=== PATIENT | male | born 2005 | race African-American/Black ===

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

== ENCOUNTER 2025-02-15 23:43 | Emergency (ER) | payer MEDICAID ==
[~2025-02-15] VITALS: Ht 172.7 cm; Wt 60.0 kg
--- NOTE | 2025-02-16 00:02 | ED.PDOC ---
GI ASSESSMENT HPI Comments 19-year-old male who came to ER for abdominal pain. Patient states for the past week, he has been experiencing intermittent episodes of diffuse, cramping, abdominal pain and lower back pains. For the past day, patient's abdominal pain and lower back pains persisted, now associated with episodes of nausea and vomiting. Patient denies any abdominal surgeries Chief Complaint: Abdominal pain Time Seen by MD: 00:01 Primary Care Provider: YOSEF Reviewed Notes: Nurses Notes Allergies: Coded Allergies: NO KNOWN ALLERGIES (Unverified , 06/21/15) Home Meds Active Scripts Tamsulosin Hcl (Flomax) 0.4 Mg Cap, 1 CAP PO DAILY for 30 Days, #30 CAP 11 Refills Prov:NURA CARDENAS MD 02/16/25 Cefdinir (Cefdinir) 300 Mg Cap, 1 CAP PO BID for 7 Days, #14 CAP Prov:NURA CARDENAS MD 02/16/25 Information Source: Patient Mode of Arrival: Ambulatory Timing: Days Duration: Intermittent Quality: Aching, Cramping Vomitus: Watery Stool: Normal Severity: Moderate Recent: None Recent Hx of: None Pain Location: Diffuse Associated sign and symptoms: Nausea, Vomiting, Abdominal Pain, Other (Back pain) Past Medical History PAST MEDICAL HISTORY: Denies Surgical History: Denies all surgeries Family History Family History: Reviewed,noncontributory to illness Social History Smoker: Non-Smoker Alcohol: Denies ETOH Use Drugs: Denies Drug Use Lives In: Home Constitutional: denies: chills, diaphoresis, fatigue, fever, malaise, sweats, weakness, others EENTM: denies: blurred vision, double vision, ear bleeding, ear discharge, ear drainage, ear pain, ear ringing, eye pain, eye redness, hearing loss, mouth pain, mouth swelling, nasal discharge, nose bleeding, nose congestion, nose pain, photophobia, tearing, throat pain, throat swelling, voice changes, others Respiratory: denies: cough, hemoptysis, orthopnea, SOB at rest, shortness of breath, SOB with excertion, stridor, wheezing, others Cardiovascular: denies: chest pain, dizzy spells, diaphoresis, Dyspnea on exertion, edema, irregular heart beat, left arm pain, lightheadedness, palpitations, PND, syncope, others Gastrointestinal: reports: abdominal pain, nausea, vomiting; denies: abdomen distended, blood streaked bowels, constipated, diarrhea, dysphagia, difficulty swallowing, hematemesis, melena, poor appetite, poor fluid intake, rectal bleeding, rectal pain, others Genitourinary: denies: burning, dysuria, flank pain, frequency, hematuria, incontinence, penile discharge, penile sore, pain, testicle pain, testicle swelling, urgency, others Musculoskeletal: reports: back pain; denies: gout, joint pain, joint swelling, muscle pain, muscle stiffness, neck pain, others Integumetry: denies: bruises, change in color, change in hair/nails, dryness, laceration, lesions, lumps, rash, wounds, others Allergic/Immunocompromised: denies: Difficulty Healing, Frequent Infections, Hives, Itching, others Hematologic/Lymphatic: denies: anemia, blood clots, easy bleeding, easy bruising, swollen glands, others Endocrine: denies: excessive hunger, excessive sweating, excessive thirst, excessive urination, flushing, intolerance to cold, intolerance to heat, unexplained weight gain, unexplained weight loss, others Psychiatric: denies: anxiety, bipolar disorder, depression, hopeless, panic disorder, schizophrenia, sleepless, suicidal, others Physical Exam General Appearance: No Apparent Distress, Normal HEENT: Normal ENT Inspection, Pharynx Normal, TMs Normal Neck: Full Range of Motion, Non-Tender, Normal, Normal Inspection Respiratory: Chest Non-Tender, Lungs Clear, No Accessory Muscle Use, No Respiratory Distress, Normal Breath Sounds Cardiovascular: No Edema, No JVD, No Murmur, No Gallop, Normal Peripheral Pulses, Regular Rate/Rhythm Breast Exam: Deferred Gastrointestinal: No Organomegaly, Non Tender, No Pulsatile Mass, Normal Bowel Sounds, Soft Genitalia: Deferred Pelvic: Deferred Rectal: Deferred Extremities: No calf tenderness, Normal capillary refill, Normal inspection, Normal range of motion, Non-tender, No pedal edema Musculoskeletal : Apperance: Normal Neurologic: Alert, emergency department II-XII nml as Tested, No Motor Deficits, Normal Affect, Normal Mood, No Sensory Deficits Cerebellar Function: Normal Reflexes: Normal Skin: Dry, Normal Color, Warm Lymphatic: No Adenopathy Was a procedure done? Was a procedure done?: No GI differential Dx Differential Diagnosis: Appendicitis, Cholecystitis, Constipation, Diverticular disease, Gastritis/PUD, Gastroenteritis, Hernia, Pancreatitis, UTI, Urolithiasis X-Ray, Labs, Meds, VS Vital Signs Date Time Temp Pulse Resp B/P (MAP) Pulse Ox O2 Delivery O2 Flow Rate FiO2 02/16/25 04:50 60 02/16/25 02:12 66 12 122/69 02/16/25 01:42 66 19 129/79 02/16/25 01:29 62 16 126/76 02/16/25 01:04 62 18 96 Room Air* 0 21 02/16/25 00:59 62 22 128/69 02/16/25 00:54 97.7 68 22 128/69 (88) 100 97.7 02/15/25 23:43 98.5 69 20 160/78 (105) 100 98.5 Lab Test 02/15/25 23:59 02/15/25 00:40 Range/Units White Blood Count 9.5 4.4-10.8 10^3/uL Red Blood Count 4.90 4.5-5.90 10^6/uL Hemoglobin 15.0 13.5-17.5 g/dL Hematocrit 44.1 41.0-53.0 % Mean Corpuscular Volume 90.1 80.0-100.0 fL Mean Corpuscular Hemoglobin 30.6 28.0-32.0 pg Mean Corpuscular Hemoglobin Concent 34.0 32.0-36.0 g/dL Red Cell Distribution Width 12.9 11.8-14.3 % Platelet Count 177 140-450 10^3/uL Mean Platelet Volume 8.2 6.9-10.8 fL Neutrophils (%) (Auto) 81.2 H 37.0-80.0 % Lymphocytes (%) (Auto) 13.0 10.0-50.0 % Monocytes (%) (Auto) 5.0 0.0-12.0 % Eosinophils (%) (Auto) 0.5 0.0-7.0 % Basophils (%) (Auto) 0.3 0.0-2.0 % Neutrophils # (Auto) 7.7 1.6-8.6 10 ^3/uL Lymphocytes # (Auto) 1.2 0.4-5.4 10 ^3/uL Monocytes # (Auto) 0.5 0-1.3 10 ^3/uL Eosinophils # (Auto) 0.1 0-0.8 10 ^3/uL Basophils # (Auto) 0 0-0.2 10 ^3/uL Nucleated Red Blood Cells 0.0 % Sodium Level 141 136-145 mmol/L Potassium Level 4.1 3.5-5.1 mmol/L Chloride Level 103 98-107 mmol/L Carbon Dioxide Level 27 20-31 mmol/L Anion Gap 11 5-15 Blood Urea Nitrogen 12 9-23 mg/dL Creatinine 1.20 0.700-1.30 mg/dL Glomerular Filtration Rate Calc 88 >90 mL/min BUN/Creatinine Ratio 10.0 10.0-20.0 Serum Glucose 103 74-106 mg/dL Calcium Level 9.7 8.7-10.4 mg/dL Total Bilirubin 0.7 0.2-1.0 mg/dL Aspartate Amino Transferase (AST) 23 <34 U/L Alanine Aminotransferase (ALT) 14 7-40 U/L Alkaline Phosphatase 63 46-116 U/L Total Protein 7.5 5.7-8.2 g/dL Albumin 5.2 H 3.2-4.8 g/dL Lipase 32 12-53 U/L Urine Color Light-yellow Yellow Urine Clarity Clear Clear Urine pH 7.5 5.0-9.0 Urine Specific [place] > 1.050 H 1.001-1.035 Urine Protein Negative Negative Urine Ketones Negative Negative Urine Blood 2+ H Negative /uL Urine Nitrite Negative Negative Urine Bilirubin Negative Negative Urine Urobilinogen Normal Negative mg/dL Urine Leukocyte Esterase 1+ Negative /uL Urine RBC 145 0 - 3 /hpf Urine Microscopic WBC 14 H 0-3 /HPF Urine Squamous Epithelial Cells Few <5 /hpf Urine Bacteria None seen None Seen /hpf Urine Glucose Normal Normal mg/dL Current Medications Medications (Trade) Dose Ordered Sig/Danielle Route Start Time Stop Time Status Last Admin Ondansetron HCl (Zofran) 4 mg ONCE ONCE IV 02/16/25 00:00 02/16/25 00:01 DC 02/16/25 01:00 Sodium Chloride 1,000 ml @ 1,000 mls/hr Q1H ONCE IVB 02/16/25 00:00 02/16/25 00:59 DC 02/16/25 00:53 Morphine Sulfate 4 mg ONCE ONCE IV 02/16/25 00:00 02/16/25 00:01 DC 02/16/25 00:59 Hydromorphone HCl (Dilaudid Injection) 1 mg ONCE ONCE IV 02/16/25 01:30 02/16/25 01:31 DC 02/16/25 01:42 Tamsulosin HCl (Flomax) 0.4 mg ONCE ONCE PO 02/16/25 05:00 02/16/25 05:01 DC 02/16/25 05:14 Ceftriaxone Sodium 50 ml @ 100 mls/hr ONCE ONCE IV 02/16/25 05:00 02/16/25 05:29 02/16/25 05:14 PROCEDURE(s): ABPLIV - CT AB PEL WITH IV CON ONLY REASON: abd pain ORDER NUMBER(s): [id number], ACCESSION NUMBER(s): [id number] Examination: ABPLIV CLINICAL INDICATION: abd pain COMPARISON: None. CONTRAST USED: Intravenous TECHNIQUE: A post contrast CT study of the abdomen and pelvis is performed after administration of intravenous contrast medium. The examination was performed with 5 mm thin slices. Technique for this CT scan was done using principles of ALARA (As Low As Reasonably Achievable). Multiplanar rec onstructions were obtained. FINDINGS: CT ABDOMEN: Lung base: The evaluation of lung bases demonstrates no focal infiltrates or pleural effusion. Liver: The liver is normal in size. The portal venous radicles are normal. There is no intrahepatic biliary radicle dilatation. A simple hepatic cyst is seen in the right lobe of the liver measuring 4.5 x 4 mm. Gallbladder: The gallbladder is normal and reveals no intrinsic abnormality. The common bile duct is not dilated. Pancreas: The pancreas is normal in size and shape. No focal lesion is seen within. The peripancreatic fat planes are normal. Spleen: The spleen is normal in size and does not show any focal abnormality. Retroperitoneum: Both adrenal glands are normal in size and morphology. There is no significant retroperitoneal lymphadenopathy. The right kidney measures 9.8 x 4.9 x 4.2 cm. The left kidney measures 9.8 x 4.0 x 4.9 cm. Calculated volume for the right kidney is approximately 99.1 mL (0.523 � 9.8 � 4.9 � 4.2). Calculated volume for the left kidney is approximately 100.4 mL (0.523 � 9.8 � 4.0 � 4.9). A hyperdense calculus is seen in the left ve sicoureteric junction measuring 3 x 2 mm (HU 1) with resultant mild prominence of left renal pelvicalyceal system and ureters. Mildly enhancing urothelial thickening is seen in the left distal ureter. Vessels: Aorta, IVC and the mesenteric vessels appear normal. Stomach and small bowel: The small bowel loops are unremarkable. There is no ascites. Skeletal system: Dorsolumbar spine and the pelvic bone appear unremarkable. CT PELVIS: Appendix: The appendix is normal in caliber measuring 4 mm in maximum diameter. Colon: The ascending, transverse, descending, sigmoid colon and rectum are unremarkable. Bladder: The urinary bladder is unremarkable. Prostate: The prostate is normal in size measuring 3.8 x 3.2 x 2.4 cm. Calculated volume is approximately 15.3 mL (0.523 � 3.8 � 3.2 � 2.4). No pelvic lymphadenopathy is identified. No abnormal fluid collection is seen. IMPRESSION: 1. A hyperdense calculus is present in the left vesicoureteric junction measuring 3 x 2 mm with mild left-sided pelvicalyceal and ureteric dilatation and mildly enhancing urothelial thickening in the left distal ureter. 2. A simple hepatic cyst is present in the right lobe of the liver measuring 4.5 x 4 mm 3. No significant abnormality detected in the lung bases, gallbladder, pancreas, spleen, urinary bladder, colon, and prostate. 4. No ascites or pelvic lymphadenopathy. 6. No evidence of free air or inflammatory changes. Time of 1ST Reevaluation: 23:58 Reevaluation 1ST: Unchanged Patient Education/Counseling: Diagnosis, Treatment Family Education/Counseling: Diagnosis, Treatment Departure 1 Departure Time of Disposition: 01:30 Impression: Primary Impression: Ureteral calculus, left Additional Impression: Ureteral colic Disposition: 01 HOME / SELF CARE / HOMELESS Condition: Stable e-Prescriptions Tamsulosin Hcl (Flomax) 0.4 Mg Cap 1 CAP PO DAILY for 30 Days, #30 CAP 11 Refills Prov: NURA CARDENAS MD 02/16/25 Cefdinir (Cefdinir) 300 Mg Cap 1 CAP PO BID for 7 Days, #14 CAP Prov: NURA CARDENAS MD 02/16/25 Discharged With: Self Critical Care Note Critical Care Time?: No Stability Stability form required: No Heart Score Heart Score: Heart Score Response (Comments) Value History N/A 0 EKG N/A 0 Age N/A 0 Risk Factors N/A 0 Troponin N/A 0 Total 0 I personally scribed for NURA CARDENAS MD ([email or web address]) on 02/16/25 at 00:02. E lectronically submitted by Jaya Loyola ([facility]). I personally scribed for NURA CARDENAS MD ([email or web address]) on 02/16/25 at 04:32. Electronically submitted by Jaya Loyola ([facility]). NURA CARDENAS MD Feb 16, 2025 00:02
[2025-02-16 00:10] LABS: Basophils # (auto) 0 10 ^3/uL (0-0.2); Basophils % (auto) 0.3 % (0.0-2.0); Eosinophils # (auto) 0.1 10 ^3/uL (0-0.8); Eosinophils % (auto) 0.5 % (0.0-7.0); Hematocrit 44.1 % (41.0-53.0); Lymphocytes # (auto) 1.2 10 ^3/uL (0.4-5.4); Mean Corpuscular Hemoglobin 30.6 pg (28.0-32.0); Mean Corpuscular Volume 90.1 fL (80.0-100.0); Monocytes # (auto) 0.5 10 ^3/uL (0-1.3); Neutrophils # (auto) 7.7 10 ^3/uL (1.6-8.6); Neutrophils % (auto) 81.2 % (37.0-80.0); Platelet Count (auto) 177 10^3/uL (140-450); Red Cell Distribution Width 12.9 % (11.8-14.3); White Blood Cell 9.5 10^3/uL (4.4-10.8)
[2025-02-16 00:28] LABS: Alanine Aminotransferase 14 U/L (7-40); Alkaline Phosphatase 63 U/L (46-116); Anion Gap 11 (5-15); Aspartate Aminotransferase 23 U/L (<34); Bilirubin, Total 0.7 mg/dL (0.2-1.0); Blood Urea Nitrogen 12 mg/dL (9-23); Calcium 9.7 mg/dL (8.7-10.4); Carbon Dioxide 27 mmol/L (20-31); Chloride 103 mmol/L (98-107); Glucose 103 mg/dL (74-106); Lipase 32 U/L (12-53); Potassium 4.1 mmol/L (3.5-5.1); Sodium 141 mmol/L (136-145); Total Protein 7.5 g/dL (5.7-8.2)
[2025-02-16 00:30] LABS: Albumin 5.2 g/dL (3.2-4.8)
[2025-02-16] MEDS: SODIUM CHLORIDE 0.9% 1,000 ML IVB ONE (00:53)
[2025-02-16] MEDS: MORPHINE SULFATE 4 MG/ML SYR/VIAL IV ONE (00:59)
[2025-02-16] MEDS: ONDANSETRON HCL 4 MG/2 ML VIAL IV ONE (01:00)
[2025-02-16 01:04] VITALS: PULSE 62; RESP 18; O2SAT 96
[2025-02-16] MEDS: HYDROmorphone HCL 2 MG/ML VL/or syr IV ONE ×3 (01:42→05:40)
[2025-02-16] MEDS: IOHEXOL 300 MG/ML 100ML BOTTLE IJ ONE (02:00)
[2025-02-16 02:58] LABS: Urine Bacteria None Seen /hpf (None Seen)
[2025-02-16 03:11] LABS: Urine Blood 2+ /uL (Negative); Urine Clarity Clear (Clear); Urine Color Light-Yellow (Yellow); Urine Protein, UAD Negative (Negative); Urine Specific Gravity > 1.050 (1.001-1.035); Urine Squamous Epithelial Cell FEW /hpf (<5); Urine Urobilinogen Normal (Negative); Urine WBC 14 /HPF (0-3); Urine pH 7.5 (5.0-9.0)
--- NOTE | 2025-02-16 04:23 | DVH ---
Examination: ABPLIV CLINICAL INDICATION: abd pain COMPARISON: None. CONTRAST USED: Intravenous TECHNIQUE: A post contrast CT study of the abdomen and pelvis is performed after administration of i ntravenous contrast medium. The examination was performed with 5 mm thin slices. Technique for this CT scan was done using principles of ALARA (As Low As Reasonably Achievable). Multiplanar reconstru ctions were obtained. FINDINGS: CT ABDOMEN: Lung base: The evaluation of lung bases demonstrates no focal infiltrates or pleural effusion. Liver: The liver is normal in size. The portal venous radicles are normal. There is no intrahepati c biliary radicle dilatation. A simple hepatic cyst is seen in the right lobe of the liver measuring 4.5 x 4 mm. Gallbladder: The gallbladder is normal and reveals no intrinsic abnormality. The common bile duct i s not dilated. Pancreas: The pancreas is normal in size and shape. No focal lesion is seen within. The peripancre atic fat planes are normal. Spleen: The spleen is normal in size and does not show any focal abnormality. Retroperitoneum: Both adrenal glands are normal in size and morphology. There is no significant ret roperitoneal lymphadenopathy. The right kidney measures 9.8 x 4.9 x 4.2 cm. The left kidney measure s 9.8 x 4.0 x 4.9 cm. Calculated volume for the right kidney is approximately 99.1 mL (0.523 � 9.8 � 4.9 � 4.2). Calculated volume for the left kidney is approximately 100.4 mL (0.523 � 9.8 4.0 � 4.9). A hyperdense calculus is seen in the left vesicoureteric junction measuring 3 x 2 mm (HU 1) with resultant mild prominence of left renal pelvicalyceal system and ureters. Mildly enhanc ing urothelial thickening is seen in the left distal ureter. Vessels: Aorta, IVC and the mesenteric vessels appear normal. Stomach and small bowel: The small bowel loops are unremarkable. There is no ascites. Skeletal system: Dorsolumbar spine and the pelvic bone appear unremarkable. CT PELVIS: Appendix: The appendix is normal in caliber measuring 4 mm in maximum diameter. Colon: The ascending, transverse, descending, sigmoid colon and rectum are unremarkable. Bladder: The urinary bladder is unremarkable. Prostate: The prostate is normal in size measuring 3.8 x 3.2 x 2.4 cm. Calculated volume is approxi mately 15.3 mL (0.523 � 3.8 � 3.2 � 2.4). No pelvic lymphadenopathy is identified. No abnormal fluid collection is seen. IMPRESSION: 1. A hyperdense calculus is present in the left vesicoureteric junction measuring 3 x 2 mm with mild left-sided pelvicalyceal and ureteric dilatation and mildly enhancing urothelial thickening in the l eft distal ureter. 2. A simple hepatic cyst is present in the right lobe of the liver measuring 4.5 x 4 mm 3. No significant abnormality detected in the lung bases, gallbladder, pancreas, spleen, urinary mariella dder, colon, and prostate. 4. No ascites or pelvic lymphadenopathy. 6. No evidence of free air or inflammatory changes. Electronically Signed 02/16/2025 04:21 Vanessa Dalton
[2025-02-16] MEDS ORDERED: CEFD300C2 PO (04:49)
[2025-02-16] MEDS ORDERED: TAMS-35 PO (04:50)
--- NOTE | 2025-02-16 04:52 | ECG ---
[facility] Test Date: 2025-02-16 Test Time: 04:50:58 Pat Name: TOYA HARP Department: ER Room: Gender: M [employer]ic: : 2005 Requested By: NURA CARDENAS Order Number: [id number] Reading MD: Brandan Vidal Measurements Intervals [place] Rate: 60 P: 104 IA: 172 QRS: 83 QRSD: 95 T: 45 QT: 394 QTc: 394 Interpretive Statements Sinus rhythm Probable left atrial enlargement RSR' in V1 or V2, probably normal variant ST elevation suggests acute pericarditis Electronically Signed On 02-17-2025 16:47:39 PDT by Brandan Vidal Please click the below link to view image of tracing.
[2025-02-16] MEDS: TAMSULOSIN HYDROCHLORIDE 0.4 MG CAP PO ONE (05:14)
[2025-02-16] MEDS: cefTRIAXone 1GM/50ML D5W 50 ML IV ONE (05:14)
[2025-02-16 05:40] VITALS: TEMP 98.3
[2025-02-16 06:08] VITALS: BP 114/68; PULSE 68; RESP 22; O2SAT 98
== END 2025-02-16 06:14 | disposition home or self-care (01) ==
LOC: ER 23:43
DX: N20.1 Calculus of ureter (principal); N23 Unspecified renal colic; R11.2 Nausea with vomiting, unspecified
CPT/HCPCS: 36415; 74177; 80053; 81001; 83690; 85025; 93005; 96361; 96365; 96375; 96376; 99285; J0696; J1171; J2270; J2405; J7030; Q9967